=== PATIENT | male | born 1990 | race African-American/Black ===

== ENCOUNTER 2024-08-16 15:59 | Emergency (ER) | payer OTHER ==
[2024-08-16] MEDS ORDERED: Amoxicillin/Potassium Clav 875 MG TAB ONE (16:14)
[2024-08-16] MEDS ORDERED: Ibuprofen 800 MG TAB ONE (16:14)
[2024-08-16] MEDS ORDERED: Boostrix 0.5 ML (Tdap) VIAL (>/=7 yrs of age) ONE (16:15)
[2024-08-16] MEDS ORDERED: Bacitracin 1 PK ONE (17:05)
[2024-08-16] MEDS ORDERED: Bacitracin-Polymyxin B Opth Oint 3.5 GM TUBE ONE (17:06)
== END 2024-08-16 16:55 | disposition home or self-care (01) ==
LOC: BURERS 15:59
DX: S81.851A Open bite, right lower leg, initial encounter (principal); S81.852A Open bite, left lower leg, initial encounter; S51.852A Open bite of left forearm, initial encounter; S51.851A Open bite of right forearm, initial encounter; S71.152A Open bite, left thigh, initial encounter; S71.151A Open bite, right thigh, initial encounter; S50.812A Abrasion of left forearm, initial encounter; S50.811A Abrasion of right forearm, initial encounter; S70.312A Abrasion, left thigh, initial encounter; S70.311A Abrasion, right thigh, initial encounter; S80.812A Abrasion, left lower leg, initial encounter; S80.811A Abrasion, right lower leg, initial encounter; F17.200 Nicotine dependence, unspecified, uncomplicated; W54.0XXA Bitten by dog, initial encounter; Y93.01 Activity, walking, marching and hiking
CPT/HCPCS: 90715; 99282